=== PATIENT | male | born 1985 | race Caucasian/White ===

== ENCOUNTER 2020-06-28 11:00 | Emergency (ER) | payer SELFPAY ==
[~2020-06-28] VITALS: Ht 185.4 cm; Wt 121.8 kg
[2020-06-28 11:04] VITALS: TEMP 98.1
[2020-06-28] MEDS ORDERED: ROBAXIN 50500 MG/TAB PO (11:39)
[2020-06-28] MEDS ORDERED: MOTRIN 600600 MG/TAB PO (11:39)
[2020-06-28] MEDS ORDERED: TYLENOL 325MG325 MG PO (11:39)
[2020-06-28] MEDS ORDERED: MINIPRESS 5M5 MG/CAP PO (11:57)
[2020-06-28] MEDS ORDERED: AMBIEN 10MG10 MG PO (11:57)
[2020-06-28] MEDS ORDERED: VRAYLAR1.5 MG PO (11:58)
[2020-06-28 12:05] VITALS: BP 120/74; PULSE 70
[2020-06-28] MEDS ORDERED: LIDODERM 5% PATC1 EA TP (12:07)
== END 2020-06-28 12:03 | disposition home or self-care (01) ==
LOC: COL.ER 11:00
DX: M54.5 Low back pain (principal)
CPT/HCPCS: J1885

== ENCOUNTER 2021-02-27 12:38 | Emergency (ER) | payer OTHER ==
[~2021-02-27] VITALS: Ht 185.4 cm; Wt 130.0 kg
[~2021-02-27 12:38] MED LIST: AMBIEN 10MG10 MG PO; LIDODERM 5% PATC1 EA TP; MINIPRESS 5M5 MG/CAP PO; MOTRIN 600600 MG/TAB PO; ROBAXIN 50500 MG/TAB PO; TYLENOL 325MG325 MG PO; VRAYLAR1.5 MG PO
[2021-02-27 12:55] VITALS: BP 130/91; PULSE 76; TEMP 98.1
[2021-02-27] MEDS ORDERED: CLEOCIN HCL300 MG PO (13:31)
== END 2021-02-27 13:50 | disposition home or self-care (01) ==
LOC: COL.ER 12:38
DX: S61.213A Laceration without foreign body of left middle finger without damage to nail, initial encounter (principal); L08.9 Local infection of the skin and subcutaneous tissue, unspecified; F17.200 Nicotine dependence, unspecified, uncomplicated; W26.0XXA Contact with knife, initial encounter

== ENCOUNTER 2021-07-31 11:46 | Emergency (ER) | payer SELFPAY ==
[~2021-07-31] VITALS: Ht 185.4 cm; Wt 131.8 kg
[~2021-07-31 11:46] MED LIST changes: +CLEOCIN HCL300 MG PO
[2021-07-31 11:52] VITALS: TEMP 97.5
[2021-07-31] MEDS ORDERED: ABILIFY5 MG PO (11:52)
[2021-07-31] MEDS ORDERED: DESYREL 50MG50 MG PO (11:52)
[2021-07-31] MEDS ORDERED: SARAFEM20 M1 PO (11:52)
[2021-07-31 15:12] VITALS: BP 141/73; PULSE 53
== END 2021-07-31 14:30 | disposition home or self-care (01) ==
LOC: COL.ER 11:46
DX: S20.211A Contusion of right front wall of thorax, initial encounter (principal); F32.A Depression, unspecified; G47.00 Insomnia, unspecified; F17.210 Nicotine dependence, cigarettes, uncomplicated; Z79.899 Other long term (current) drug therapy; X50.9XXA Other and unspecified overexertion or strenuous movements or postures, initial encounter
CPT/HCPCS: J1885

== ENCOUNTER 2022-02-24 14:32 | Emergency (ER) | payer SELFPAY ==
[~2022-02-24] VITALS: Ht 185.4 cm; Wt 130.9 kg
[~2022-02-24 14:32] MED LIST changes: +ABILIFY5 MG PO; +DESYREL 50MG50 MG PO; +SARAFEM20 M1 PO
[2022-02-24 14:50] VITALS: TEMP 98.2
[2022-02-24 15:22] LABS: COLLECTION METHOD CLEAN CATCH
[2022-02-24 15:29] LABS: PH 8.5 (5.0-8.5); SQUAMOUS EPITHELIAL 0-2 /hpf (0-10); URINE APPEARANCE Clear (CLEAR/HAZY); URINE BACTERIA Rare /hpf (NONE SEEN); URINE BLOOD Negative (NEGATIVE); URINE COLOR Yellow (YELLOW); URINE GLUCOSE Negative (NEGATIVE); URINE KETONE Negative (NEGATIVE); URINE NITRATE Negative (NEGATIVE); URINE PROTEIN(semi-quant) Negative (NEGATIVE); URINE RBC 0-2 /hpf (0-2); URINE UROBILINOGEN 0.2 E.U/dL (0.2-1.0)
[2022-02-24 15:39] LABS: BASO # 0.1 K/mm3 (0.0-0.2); BASO % 0.8 % (0.0-2.0); EOS # 0.4 K/mm3 (0.0-0.7); EOS % 4.6 % (0.0-4.0); GRAN # 5.3 K/mm3 (1.4-6.5); GRAN % 63.4 % (42.2-75.2); HEMATOCRIT 42.3 % (42.0-52.0); HEMOGLOBIN 14.6 g/dl (13.5-18.0); LYMPH % 24.3 % (20.0-51.0); MEAN CELL VOLUME 90 fl (80.0-100.0); MEAN CORPUSCULAR HEMOGLOBIN 31 pg (27-31); MEAN CORPUSCULAR HGB CONC 35 g/dl (33.0-37.0); MEAN PLATELET VOLUME 8.7 fl (7.4-10.4); MONO # 0.5 K/mm3 (0.1-0.6); MONO % 6.4 % (1.7-9.3); PLATELET COUNT 365 K/mm3 (130-400); RED BLOOD COUNT 4.68 M/mm3 (4.20-5.60); REDCELL DISTRIBUTION WIDTH-CV 12.6 % (11.5-14.5)
[2022-02-24 16:20] LABS: ALBUMIN 3.8 gm/dL (3.5-5.0); BILIRUBIN,TOTAL 0.4 mg/dL (0.2-1.2); CREATININE, serum 0.79 mg/dL (0.72-1.25); TOTAL PROTEIN 6.6 gm/dL (6.2-8.1)
[2022-02-24] MEDS ORDERED: ZOFRAN ODT4 MG PO (16:27)
[2022-02-24 16:40] VITALS: BP 122/63; PULSE 64
== END 2022-02-24 16:40 | disposition home or self-care (01) ==
LOC: COL.ER 14:32
PROVIDERS: Family Medicine
DX: K52.9 Noninfective gastroenteritis and colitis, unspecified (principal)

== ENCOUNTER 2022-02-27 11:30 | Emergency (ER) | payer SELFPAY ==
[~2022-02-27] VITALS: Ht 185.4 cm; Wt 130.9 kg
[~2022-02-27 11:30] MED LIST changes: +ZOFRAN ODT4 MG PO
[2022-02-27 11:42] VITALS: TEMP 97.1
[2022-02-27] MEDS ORDERED: OXY IR5 MG PO (13:30)
[2022-02-27 15:05] VITALS: BP 127/77; PULSE 73
== END 2022-02-27 15:19 | disposition home or self-care (01) ==
LOC: COL.ER 11:30
DX: M54.50 Low back pain, unspecified (principal); Z28.310 Unvaccinated for COVID-19; X50.0XXA Overexertion from strenuous movement or load, initial encounter